=== PATIENT | male | born 1950 | race Caucasian/White ===

== ENCOUNTER 2021-03-27 13:21 | Outpatient (CLI) | payer MEDICARE, OTHER ==
[~2021-03-27 13:21] MED LIST: ASPI-266 PO; LISI20TA PO; PANT20TA PO; SUCR1TAB23 PO
[2021-03-27] MEDS ORDERED: VIT-31 PO (14:09)
[2021-03-27] MEDS ORDERED: ASPI-999 PO (14:09)
[2021-03-31] MEDS ORDERED: PANT40TA2 PO (13:58)
== END 2021-03-27 14:43 | disposition home or self-care (01) ==
LOC: PREOP 13:21
PROVIDERS: ATTEND Surgery
DX: Z01.818 Encounter for other preprocedural examination (principal)

== ENCOUNTER → 2021-03-30 | Outpatient (CLI) | payer MEDICARE, OTHER ==
[~2021-03-30] MED LIST changes: +ASPI-999 PO; +PANT40TA2 PO; +VIT-31 PO
== END ==
LOC: LAB FS 10:00
PROVIDERS: ATTEND Surgery
DX: Z01.812 Encounter for preprocedural laboratory examination (principal); R10.9 Unspecified abdominal pain; R13.10 Dysphagia, unspecified; R19.4 Change in bowel habit; Z20.822 Contact with and (suspected) exposure to COVID-19
CPT/HCPCS: 87635

== ENCOUNTER 2021-03-31 11:09 | Day surgery (SDC) | payer MEDICARE, OTHER ==
--- NOTE | 2021-03-27 22:51 | HISTORY AND PHYSICAL ---
DATE OF SERVICE: ATTENDING PRIMARY CARE PHYSICIAN: Dr. Antonio Archer. HISTORY OF PRESENT ILLNESS: The patient is a 71-year-old male known to us. He presents with few different issues. He first reports that he has developed epigastric and substernal pressure sensation with specific types of foods usually with rice and turkey. He then states that eventually this would reduce on its own over time; however, he would also frequently have regurgitation. He does not report any hematemesis, no coffee ground emesis. He does have a history of gastroesophageal reflux disease; however, he states that this is not severe. He is currently not on any acid reducers. He also reports a change in bowel habit and states that he has always been regular; however, in the past several months, he has not been as regular and states that his stools have been harder and he feels that he has incomplete evacuation after having a bowel movement. He does not report any red blood per rectum nor any dark tarry stools. He also does not report any recent inadvertent weight loss. He did undergo a colonoscopy in 2013, which showed mild chronic stage II external and internal hemorrhoids as well as a mild sigmoid diverticulosis. No other abnormalities were detected. PAST MEDICAL HISTORY: Hypertension, ocular hypertension. PAST SURGICAL HISTORY: None. ALLERGIES: No known drug allergies. MEDICATIONS: Lisinopril 20 mg daily, aspirin 81 mg daily, Travatan eyedrops daily. SOCIAL HISTORY: Negative smoke, negative alcohol. FAMILY HISTORY: Mother, stroke, age 78, hypertension. Father, lung cancer, age 75. VITAL SIGNS: Blood pressure 140/80, current weight 186.8 pounds at 6 feet 1 inch. REVIEW OF SYSTEMS: This is a well-nourished male, currently in no acute distress. He is not experiencing any shortness of breath or difficulty breathing. No chest pain, palpitations, diaphoresis. He has had epigastric pressure sensation as well as substernal and this tends to follow dry foods and then would reduce on its own or he would regurgitate the food up. No hematemesis, no coffee ground emesis. He also reports change in bowel habits with feelings of incomplete evacuation as well as harder more well-formed stools, which has not been the norm for him. This is despite taking stool softeners as well as some laxatives. No fever, chills, no recent inadvertent weight loss. All other review of systems negative. PHYSICAL EXAMINATION: CHEST: Clear. Good breath sounds bilaterally. HEART: Regular, no murmurs. EXTREMITIES: No lower extremity edema, negative Homans sign. HEENT: No scleral icterus. NECK: No cervical lymphadenopathy. ABDOMEN: Soft, nondistended. There is mild discomfort in the epigastric region upon deep palpation. No peritoneal signs. No hernias. SKIN: Warm, dry. ASSESSMENT AND PLAN: A 71-year-old male with dysphagia, atypical gastroesophageal reflux disease as well as change in bowel habits encompassing harder more well-formed stools and constipation. We will schedule him for an EGD as well as biopsies as appropriate as well as a balloon dilatation if a stricture is identified. We will also proceed with colonoscopy to evaluate any anatomic changes. If none is identified, we will recommend the incorporation of high fiber diet with fiber supplementation, which should equal or exceed 30 mg daily to the point where he does have soft stools on a daily basis with minimal form. Job ID: [id number] DocumentID: [id number] Dictated Date: 03/27/2021 20:48:25 Director Quality Systems Date: 03/27/2021 21:03:51 Dictated By: ARTEMIO MOORE MD
[2021-03-31] VITALS (7 sets, daily range): BP systolic 91–138; BP diastolic 56–86
[~2021-03-31] VITALS: Ht 185 cm; Wt 85.0 kg
[~2021-03-31 11:09] MED LIST changes: -PANT40TA2 PO
[2021-03-31] MEDS ORDERED: LACTATED RINGERS 1,000 ML IV STA (11:19)
[2021-03-31] MEDS ORDERED: LACTATED RINGERS 1,000 ML IV ONE (11:30)
[2021-03-31] MEDS ORDERED: HURRICAINE EXT TUBE (BENZOCAINE) XX PRN (11:30)
[2021-03-31] MEDS ORDERED: LIDOCAINE JELLY 2% 6 ML SYRINGE MM PRN (11:30)
[2021-03-31] MEDS ORDERED: PROPOFOL INJECTION 50 ML IV ONE (13:44)
[2021-03-31] MEDS ORDERED: MIDAZOLAM 2 MG/2 ML (VERSED) VIAL ONE (13:44)
--- NOTE | 2021-03-31 13:56 | Progress Note-Pre Operative ---
Pre-Operative Progress Note H&P Reviewed The H&P was reviewed, patient examined and no changes noted. Date Seen by Provider: Mar 31, 2021 Time Seen by Provider: 13:30 Date H&P Reviewed: Mar 31, 2021 Time H&P Reviewed: 13:30 Pre-Operative Diagnosis: dysphagia, change bowel habits ARTEMIO MOORE MD Mar 31, 2021 13:56
[2021-03-31] MEDS ORDERED: PANT40TA2 PO (13:58)
--- NOTE | 2021-03-31 13:58 | Discharge Inst-Surgical ---
D/C Lap Instructions-KIDO New, Converted, or Re-Newed RX: RX on Chart Follow Up Activity as tolerated High Fiber Diet 25g or more per day Avoid Alcohol, Caffeine, Spicy Ivins and Acid foods. Drink 64 fluid oz or more of fluids per day. Symptoms to Report: Fever over 101 degree F, Nausea/Vomiting If any problems/questions: Contact your physician or go to Emergency Room ARTEMIO MOORE MD Mar 31, 2021 13:58
[2021-03-31] MEDS ORDERED: morphine INJ 10 MG/ML 1ML (SYR OR VIAL) IVP PRN ×2 (14:00)
[2021-03-31] MEDS ORDERED: HYDROcodone/APAP 5 MG/325 MG (LORTAB) TAB PO PRN (14:00)
[2021-03-31] MEDS ORDERED: ACETAMINOPHEN 325 MG TABLET PO PRN (14:00)
[2021-03-31] MEDS ORDERED: ONDANSETRON 4 MG/2 ML (SDV) Z0FRAN IVP PRN (14:00)
--- NOTE | 2021-03-31 14:44 | Anesthesia-General Post-Op ---
MAC Patient Condition Mental Status/LOC: Same as Preop Cardiovascular: Satisfactory Nausea/Vomiting: Absent Respiratory: Satisfactory Pain: Controlled Complications: Absent Post Op Complications Complications None Follow Up Care/Instructions Patient Instructions None needed. Anesthesiology Discharge Order Discharge Order Patient is doing well, no complaints, stable vital signs, no apparent adverse anesthesia problems. No complications reported per nursing. TYRELL PISANO CRNA Mar 31, 2021 14:44
--- NOTE | 2021-03-31 15:55 | Progress Note-Post Operative ---
Post-Operative Progess Note Surgeon (s)/Caddy Packer (s) Surgeon ARTEMIO MOORE MD Caddy Packer: none Pre-Operative Diagnosis dysphagia, change bowel habits Post-Operative Diagnosis reflux esophagitis(stage 2-3), mild distal esophageal stricture, moderate gastritis. mild chronic stage 2 ext and int hemorrhoids, BPH, mild-mod sigmoid diverticulosis. Procedure & Operative Findings Date of Procedure 03/31/21 Procedure Performed/Findings EGD with bx and balloon dilatation. Colonoscopy Anesthesia Type mac Estimated Blood Loss Estimated blood loss (mL): minimal Specimens/Packing Specimens Removed ge jxn, antrum ARTEMIO MOORE MD Mar 31, 2021 15:55
--- NOTE | 2021-03-31 16:26 | OPERATIVE REPORT ---
DATE OF SERVICE: 03/31/2021 ATTENDING PRIMARY CARE PHYSICIAN: Dr. Antonio Archer. PREOPERATIVE DIAGNOSES: Dysphagia, change in bowel habits. POSTOPERATIVE DIAGNOSES: Reflux esophagitis between stage II and III, mild distal esophageal stricture, small hiatal hernia 2 cm in size, moderate gastritis. Mild chronic stage II external and internal hemorrhoids, mild to moderate sigmoid diverticulosis. DISPOSITION: The patient tolerated the procedure well. INDICATIONS: The patient is a 71-year-old male known to us. He presented with different issues. He reported developing epigastric and substernal pressure sensation with specific types of food usually with rice and turkey. He states that this would eventually reduce on its own over time; however, would also have episodes of regurgitation. He does not report any hematemesis, no coffee ground emesis. He does have a history of gastroesophageal reflux disease; however, not severe and does not take any medication for this. He reports a change in bowel habits and states that he has always been regular. However, in the past several months, he has noticed not been as regular and his stools have been harder and also feels the sensation of incomplete evacuation after trying to have a bowel movement. He does not report any red blood per rectum nor any dark tarry stools. DESCRIPTION OF PROCEDURE: The patient was brought to the endoscopy suite, laid in the left lateral decubitus position. After adequate IV pain and sedative medications and monitored anesthesia care, the mouthpiece was applied. The endoscope was then placed in the mouth, visualizing the pharynx and hypopharyngeal region. Vocal cords, epiglottis and vallecula identified and appeared to be normal. The endoscope was then gently intubated at esophageal opening and esophagus insufflated. The endoscope was then advanced to the first, second and third portion of esophagus at the level of the GE junction, reflux esophagitis between stage II and III identified. There was a mild distal esophageal stricture also identified. A biopsy was taken of the GE junction with forceps with visualization of good hemostasis. The endoscope was then advanced in the stomach and endoscope retroflexed, visualizing small hiatal hernia approximately 2 cm in size. There was moderate gastritis more towards the stomach antrum. No formal ulcerations, polyps, or any neoplasms identified. A biopsy was taken of the antrum to rule out H. pylori with visualization of good hemostasis. The endoscope was then advanced through the pylorus and the first and second portion of the duodenum, which appeared normal. The balloon dilator was then placed in the stomach and pulled back to the area of the stricture. We then proceeded with 2 atmospheres of pressure with mild resistance. We then went to 4 atmospheres of pressure or 19 mm in luminal diameter. We then slowly proceeded to 4 atmospheres of pressure with moderate resistance and this was 19 mm in luminal diameter and left this in place for approximately 60 seconds. The balloon was then desufflated and removed with visualization of good hemostasis as well as no mucosal tears. The endoscope was then slowly withdrawn while taking a second look and suctioning of residual air with no additional findings. A digital rectal examination was performed, which revealed mild chronic stage II external and internal hemorrhoids, not actively edematous nor inflamed and no bleeding. Normal sphincter tone was felt and there were no palpable masses. Prostate gland was palpable and slightly hypertrophic. However, there were no discrete nodules identified. The endoscope was then intubated into the anus and rectum gently insufflated. The endoscope was then advanced to the valves of Tellez of the rectum with no polyps or any neoplasms identified. Through the sigmoid colon, a mild to moderate sigmoid diverticulosis identified. There were no mucosal inflammatory changes to indicate any active diverticulitis. The endoscope was then advanced through the remainder of the descending, transverse and ascending colon to the cecum. These segments were normal. There were no polyps or any neoplasms identified. The endoscope was then slowly withdrawn while taking a second look and suctioning of residual air with no additional findings. The patient tolerated the procedure well. We will recommend the necessary lifestyle and diet accommodation including small and more frequent meals, avoidance of eating at night as well as head elevation while lying supine. He also needs to avoid caffeinated beverages, spicy, greasy and acidic foods and we will also start him on Protonix 40 mg daily. We will also recommend incorporation of a high-fiber diet with a fiber supplement, which should equal or exceed 30 grams daily as well as significant amounts of water till he reach the point of having a soft bowel movement with minimal form on a daily basis. Job ID: [id number] DocumentID: [id number] Dictated Date: 03/31/2021 14:40:42 Mainframe Software Developer Date: 03/31/2021 16:26:13 Dictated By: ARTEMIO MOORE MD
== END 2021-03-31 15:27 | disposition home or self-care (01) ==
LOC: ENDO 11:09
PROVIDERS: ATTEND Surgery
DX: K21.00 Gastro-esophageal reflux disease with esophagitis, without bleeding (principal); K22.2 Esophageal obstruction; K44.9 Diaphragmatic hernia without obstruction or gangrene; K29.70 Gastritis, unspecified, without bleeding; K64.1 Second degree hemorrhoids; K57.30 Diverticulosis of large intestine without perforation or abscess without bleeding; K59.00 Constipation, unspecified; I10 Essential (primary) hypertension; H40.059 Ocular hypertension, unspecified eye; Z79.82 Long term (current) use of aspirin; Z79.899 Other long term (current) drug therapy; Z98.890 Other specified postprocedural states

== ENCOUNTER 2021-10-30 13:23 | Emergency (ER) | payer MEDICARE, OTHER ==
[~2021-10-30] VITALS: Ht 185.5 cm; Wt 89.8 kg
[~2021-10-30 13:23] MED LIST changes: +PANT40TA2 PO
[2021-10-30 13:50] LABS: PROTHROMBIN TIME PATIENT 13.3 SEC (12.2-14.7)
--- NOTE | 2021-10-30 13:50 | ED Chest Pain ---
General Chief Complaint: Chest Pain Stated Complaint: CHEST PAIN Nursing Triage Note: Patient reports he tested positive for COVID-19 on October 15, states he has been released from quarantine and has been feeling well. He reports sudden onset of chest pain/tightness today just prior to coming to the ER. He reports the pain has now resolved, states he took 2 (81mg) aspirin before coming to the ED. He reports he has just finished taking a z-pack and course of dexamethasone. Source: patient History of Present Illness Date Seen by Provider: Oct 30, 2021 Time Seen by Provider: 13:37 Initial Comments 71-year-old male presenting with complaints of tightness to his upper back between his shoulders. He states that this seemed to improve as he was walking and moving around. He had some mild shortness of breath along with it. He did take 281 mg aspirin prior to coming to the ED. He had COVID on October 15 and was just released from quarantine. He had a chest x-ray done last week that did not show any acute changes. He feels like his lungs are very dry and he cannot get anything up when he coughs. He does have a history of hypertension but does not have any heart history. He denies having any nausea or vomiting. He is not having any dizziness, lightheadedness, anterior chest pain, abdominal pain, headache, radiation to his arms. He does feel like his muscles have been tight in the upper back between his shoulder blades. His symptoms lasted for a few minutes and then resolved. 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) NTG SL PASSENGER LOCOMOTIVE ENGINEER: No Associated Symptoms: No abdominal pain, No diaphoresis, No dizziness, No edema, No fatigue, No fever/chills, No headache, No heartburn, No nausea/vomiting, No rash; shortness of breath (mild chronic since Covid 2 weeks ago); No swelling/lump in chest, No syncope, No weakness Allergies and Home Medications Allergies Coded Allergies: No Known Drug Allergies (Unverified , 08/07/14) Patient Home Medication List Home Medication List Reviewed: Yes Aspirin (Aspirin) 81 Mg Tab.chew, 81 MG PO DAILY, (Reported) Entered as Reported by: HIWOT FRANCO on 03/27/21 1409 Lisinopril (Prinivil) 20 Mg Tablet, 20 MG PO DAILY, (Reported) Entered as Reported by: STIVEN HALEY on 08/07/14 0858 Pantoprazole Sodium (Protonix) 40 Mg Tablet.dr, 40 MG PO DAILY Prescribed by: ARTEMIO MOORE on 03/31/21 1358 Vit A/Vit C/Vit E/Zinc/Copper (Eye Multivitamin Tablet) 1 Each Tablet, 1 EACH PO DAILY, (Reported) Entered as Reported by: HIWOT FRANCO on 03/27/21 1409 Review of Systems Review of Systems Constitutional: No chills, No diaphoresis, No fever EENTM: No Symptoms Reported Respiratory: See HPI Cardiovascular: See HPI Gastrointestinal: See HPI Genitourinary: Denies Burning, Denies Drainage Musculoskeletal: see HPI Skin: No rash Psychiatric/Neurological: Denies Headache Hematologic/Lymphatic: Denies Blood Clots Past Llrhmkg-Rhttgm-Lmtoav Hx Patient Social History Tobacco Use?: No Substance use?: No Alcohol Use?: No Pt feels they are or have been: No Immunizations Up To Date First/Initial COVID19 Vaccinat: Nov 2020 Second COVID19 Vaccination Charles: December 2020 COVID19 Vaccine Warning Analyst: Yury Seasonal Allergies Seasonal Allergies: No Past Medical History Surgery/Hospitalization HX: HTN, ocular HTN, GERD, Covid Oct 2021 Surgeries: No Respiratory: No Cardiac: No Neurological: No Genitourinary: No Gastrointestinal: No Musculoskeletal: Yes (ARTHRITIS) Endocrine: No HEENT: No Cancer: No Psychosocial: No Integumentary: No Blood Disorders: No Physical Exam Vital Signs Vital Signs - First Documented 10/30/21 13:30 Temp 36.4 Pulse 75 Resp 13 B/P (MAP) 130/99 (109) Pulse Ox 99 O2 Delivery Room Air Capillary Refill : Less Than 3 Seconds Height, Weight, BMI Height: 6'1.00" Weight: 190lbs. oz. 86.239485hh; 26.00 BMI Method: General Appearance: No Apparent Distress, WD/WN HEENT: PERRL/EOMI, Pharynx Normal Neck: Full Range of Motion, Normal Inspection, Non Tender, Supple Respiratory: Lungs Clear, Normal Breath Sounds, No Accessory Muscle Use, No Respiratory Distress, Other (tightness to muscles of upper back between shoulder blades) Cardiovascular: Regular Rate, Rhythm, No Murmur, Normal Peripheral Pulses Gastrointestinal: Normal Bowel Sounds, No Pulsatile Mass, Non Tender, Soft Rectal: Deferred Extremity: Normal Capillary Refill, Normal Inspection, No Calf Tenderness, No Pedal Edema Neurologic/Psychiatric: Alert, Oriented x3, No Motor/Sensory Deficits, Normal Mood/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, 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 Norm as Tested Skin: Normal Color, Warm/Dry Progress/Results/Core Measures Results/Orders Lab Results Laboratory Tests Test 10/30/21 13:32 10/30/21 15:25 Range/Units White Blood Count 11.7 H 4.3-11.0 10^3/uL Red Blood Count 4.77 4.30-5.52 10^6/uL Hemoglobin 13.9 13.3-17.7 g/dL Hematocrit 40 40-54 % Mean Corpuscular Volume 85 80-99 fL Mean Corpuscular Hemoglobin 29 25-34 pg Mean Corpuscular Hemoglobin Concent 34 32-36 g/dL Red Cell Distribution Width 11.4 10.0-14.5 % Platelet Count 565 H 130-400 10^3/uL Mean Platelet Volume 8.4 L 9.0-12.2 fL Immature Granulocyte % (Auto) 2 % Neutrophils (%) (Auto) 64 42-75 % Lymphocytes (%) (Auto) 25 12-44 % Monocytes (%) (Auto) 7 0-12 % Eosinophils (%) (Auto) 1 0-10 % Basophils (%) (Auto) 1 0-10 % Neutrophils # (Auto) 7.5 1.8-7.8 X 10^3 Lymphocytes # (Auto) 3.0 1.0-4.0 X 10^3 Monocytes # (Auto) 0.9 0.0-1.0 X 10^3 Eosinophils # (Auto) 0.2 0.0-0.3 10^3/uL Basophils # (Auto) 0.1 0.0-0.1 10^3/uL Immature Granulocyte # (Auto) 0.2 H 0.0-0.1 10^3/uL Prothrombin Time 13.3 12.2-14.7 SEC INR Comment 1.0 0.8-1.4 Activated Partial Thromboplast Time 25 24-35 SEC D-Dimer 0.90 H 0.00-0.49 UG/ML Sodium Level 137 135-145 MMOL/L Potassium Level 4.6 3.6-5.0 MMOL/L Chloride Level 102 98-107 MMOL/L Carbon Dioxide Level 26 21-32 MMOL/L Anion Gap 9 5-14 MMOL/L Blood Urea Nitrogen 17 7-18 MG/DL Creatinine 1.18 0.60-1.30 MG/DL Estimat Glomerular Filtration Rate 67 BUN/Creatinine Ratio 14 Glucose Level 103 70-105 MG/DL Calcium Level 9.2 8.5-10.1 MG/DL Corrected Calcium 9.0 8.5-10.1 MG/DL Magnesium Level 1.9 1.6-2.4 MG/DL Total Bilirubin 0.2 0.1-1.0 MG/DL Aspartate Amino Transf (AST/SGOT) 11 5-34 U/L Alanine Aminotransferase (ALT/SGPT) 17 0-55 U/L Alkaline Phosphatase 74 40-136 U/L Myoglobin 41.8 10.0-92.0 NG/ML Troponin I < 0.30 < 0.30 <0.30 NG/ML Pro-B-Type Natriuretic Peptide 71.1 <75.0 PG/ML Total Protein 7.0 6.4-8.2 GM/DL Albumin 4.2 3.2-4.5 GM/DL My Orders Orders - RAD DONALDSON MD Cbc With Automated Diff (10/30/21 13:39) Magnesium (10/30/21 13:39) Chest 1 View Ap/Pa Only (10/30/21 13:39) Ekg Tracing (10/30/21 13:39) Comprehensive Metabolic Panel (10/30/21 13:39) Myoglobin Serum (10/30/21 13:39) Protime With Inr (10/30/21 13:39) Partial Thromboplastin Time (10/30/21 13:39) Monitor-Rhythm Ecg Trace Only (10/30/21 13:39) Ed Iv/Invasive Line Start (10/30/21 13:39) Troponin I Fs (10/30/21 13:39) Probnp Fs (10/30/21 13:48) Fibrin Degradation Products (10/30/21 14:16) Ketorolac Injection (Toradol Injection) (10/30/21 14:17) Orphenadrine Inj (Ed Only) (Norflex Inje (10/30/21 14:17) Ct Angio Chest W (10/30/21 14:54) Troponin I Fs (10/30/21 14:54) Iohexol Injection (Omnipaque 350 Mg/Ml 1 (10/30/21 15:00) Received Contrast (Hold Metformin- Contr (10/30/21 15:00) Sodium Chloride Flush (Catheter Flush Sy (10/30/21 15:00) Ns (Ivpb) (Sodium Chloride 0.9% Ivpb Bag (10/30/21 15:00) Medications Given in ED Current Medications Medications Dose Ordered Sig/Christos Route Start Time Stop Time Status Last Admin Dose Admin Iohexol 100 ml ONCE ONCE IV 10/30/21 15:00 10/30/21 15:01 DC 10/30/21 15:19 100 ML Sodium Chloride 10 ml NEEDED PRN IV 10/30/21 15:00 10/30/21 16:11 DC 10/30/21 15:19 10 ML Sodium Chloride 100 ml ONCE ONCE IV 10/30/21 15:00 10/30/21 15:01 DC 10/30/21 15:19 100 ML Vital Signs/I&O 10/30/21 10/30/21 13:30 16:10 Temp 36.4 Pulse 75 71 Resp 13 18 B/P (MAP) 130/99 (109) 131/69 Pulse Ox 99 97 O2 Delivery Room Air Room Air Blood Pressure Mean: 109 Progress Progress Note #1: Progress Note Check basic labs as well as electrocardiogram and chest x-ray. We will try a dose of muscle relaxer and low-dose anti-inflammatory to see if that helps with his symptoms while waiting on blood work. His initial electrocardiogram does not show any acute coronary syndrome or ST elevation AR. Progress Note #2: Progress Note Initial labs all look stable without acute significant abnormality. His chest x-ray shows some COPD type changes with no acute infiltrate or effusion. His initial troponin is negative. He does have a mild elevation of his D-dimer up to 0.9. Will repeat the troponin to make sure that it is not increasing. Also will add on a CT angiogram of the chest considering he has an elevated D-dimer. This is likely just due to his recent COVID infection but if there are signs of a PE then the CT angiogram would help pick that up Progress Note #3: Progress Note CT angiogram is negative for PE and no acute abnormality of heart or lungs on imaging either. Repeat troponin still pending. Progress Note #4: Progress Note Repeat Troponin still <0.3 and he has had no further symptoms. Will discharge to home and reviewed return precautions and encouraged to follow up with pcp for continued problems. May be more musculoskeletal or continued healing post-covid infection. Initial ECG Impression Date: Oct 30, 2021 Initial ECG Impression Time: 13:25 Initial ECG Rate: 75 Initial ECG Rhythm: Normal Sinus Initial ECG Comparisson: No Previous ECG Available Comment Normal sinus rhythm with a heart rate of 75 bpm. NE interval [address] elevation. QT interval 386 ms with a QTc interval 420 ms. No prior tracing available for comparison Diagnostic Imaging Diagonstic Imaging: Xray Plain Films/CT/US/NM/MRI: chest Comments NAME: Kin RAI II MED REC#: [id number] PT STATUS: REG ER : 1950 PHYSICIAN: RAD DONALDSON MD ADMIT DATE: 10/30/21/ER FS Draft Date of Exam:10/30/21 CHEST 1 VIEW AP/PA ONLY INDICATION: Chest pain and tightness EXAMINATION: Chest 10/30/2021 FINDINGS: Single view chest. Lungs appear hyperinflated but clear. There are no infiltrates, effusions or pneumothorax. The heart and pulmonary vasculature is normal. Osseous structures intact. IMPRESSION: 1. Emphysematous changes with otherwise negative chest. Dictated on workstation # [id number] Dict: 10/30/21 1347 Trans: 10/30/[address] [facility] [id number] Interpreted by: ZEESHAN MADISON MD Electronically signed by: Reviewed: Reviewed by Me Diagonstic Imaging: CT Plain Films/CT/US/NM/MRI: chest Comments NAME: Kin RAI II MED REC#: [id number] PT STATUS: REG ER : 1950 PHYSICIAN: RAD DONALDSON MD ADMIT DATE: 10/30/21/ER FS Draft Date of Exam:10/30/21 CT ANGIO CHEST W PROCEDURE: CT angiography of the chest with contrast. TECHNIQUE: Multiple contiguous axial images were obtained through the chest after uneventful bolus administration of intravenous contrast. 3D reconstructed CTA MIP acquisitions were also performed. Auto Exposure Controls were utilized during the CT exam to meet ALARA standards for radiation dose reduction. INDICATION: Chest pain and tightness across the shoulder blades. Patient also has elevated D-dimer. COMPARISON: No prior studies are available for comparison. FINDINGS: There is suboptimal opacification of the pulmonary arterial system. This does limit evaluation of the more peripheral pulmonary arteries. No central pulmonary emboli are detected. Thoracic aorta is normal in caliber. There is no dissection. There is no pericardial or pleural fluid identified. No pulmonary infiltrates, nodules or masses are detected. Upper abdomen is unremarkable. IMPRESSION: Suboptimal opacification of the pulmonary arterial system. No definite central pulmonary emboli are detected. There is no evidence of acute aortic disease. Dictated on workstation # [id number] Dict: 10/30/21 1524 Trans: 10/30/21 1531 [id number] Interpreted by: KAREEN SHANKS MD Electronically signed by: Reviewed: Reviewed by Me Departure Impression Primary Impression: Feeling of chest tightness Additional Impression: Atypical chest pain Disposition: HOME, SELF-CARE Condition: Stable Departure-Patient Inst. Decision time for Depature: 16:08 Referrals: EUGENIE PRUITT DO (PCP) Primary Care Physician Patient Instructions: Chest Pain, Adult ED, Recovery After COVID-19 Add. Discharge Instructions: Your tests do not show any signs of heart attack, pneumonia, or blood clots. The Chest tightness may be related to inflammation from recent Covid infection If you have continued symptoms then check back with Dr. Pruitt. You could try alternating ice and heat to help with chest wall and muscle pain to your upper back. All discharge instructions reviewed with patient and/or family. Voiced understanding. RAD DONALDSON MD Oct 30, 2021 13:50
[2021-10-30 13:52] LABS: HEMATOCRIT 40 % (40-54); HEMOGLOBIN 13.9 g/dL (13.3-17.7); MEAN CORPUSCULAR HEMOGLOBIN 29 pg (25-34); MEAN CORPUSCULAR HGB CONC 34 g/dL (32-36); MEAN CORPUSCULAR VOLUME 85 fL (80-99); MEAN PLATELET VOLUME 8.4 fL (9.0-12.2); NEUTROPHILS % (AUTO) 64 % (42-75); PLATELET COUNT 565 10^3/uL (130-400); WHITE BLOOD COUNT 11.7 10^3/uL (4.3-11.0)
[2021-10-30 13:53] LABS: BASOPHILS # (AUTO) 0.1 10^3/uL (0.0-0.1); BASOPHILS % (AUTO) 1 % (0-10); EOSINOPHILS # (AUTO) 0.2 10^3/uL (0.0-0.3); EOSINOPHILS % (AUTO) 1 % (0-10); LYMPHOCYTES % (AUTO) 25 % (12-44); MONOCYTES # (AUTO) 0.9 X 10^3 (0.0-1.0); MONOCYTES % (AUTO) 7 % (0-12); NEUTROPHILS # (AUTO) 7.5 X 10^3 (1.8-7.8)
[2021-10-30] MEDS ORDERED: ORPHENADRINE 60 MG/2 ML (NORFLEX) AMP (ED ONLY) IVP STA (14:17)
[2021-10-30] MEDS ORDERED: KETOROLAC 30 MG/ML VIAL IVP STA (14:17)
[2021-10-30 14:28] LABS: BILIRUBIN,TOTAL 0.2 MG/DL (0.1-1.0); CALCIUM 9.2 MG/DL (8.5-10.1); CREATININE SERUM 1.18 MG/DL (0.60-1.30); MAGNESIUM 1.9 MG/DL (1.6-2.4); POTASSIUM 4.6 MMOL/L (3.6-5.0)
[2021-10-30 14:29] LABS: ALBUMIN 4.2 GM/DL (3.2-4.5)
[2021-10-30] MEDS ORDERED: CATHETER FLUSH 10 ML SYR IV PRN (15:00)
[2021-10-30] MEDS ORDERED: IOHEXOL 350 MG/ML 100 ML (OMNIPAQUE 350) VIAL IV ONE (15:00)
[2021-10-30] MEDS ORDERED: HOLD METFORMIN - RECEIVED CONTRAST 20 ML VIAL IV SCH (15:00)
[2021-10-30] MEDS ORDERED: NS 100 ML (IVPB) BAG IV ONE (15:00)
--- NOTE | 2021-10-30 15:31 | Diagnostic Imaging Report ---
PROCEDURE: CT angiography of the chest with contrast. TECHNIQUE: Multiple contiguous axial images were obtained through the chest after uneventful bolus administration of intravenous contrast. 3D reconstructed CTA MIP acquisitions were also performed. Auto Exposure Controls were utilized during the CT exam to meet ALARA standards for radiation dose reduction. INDICATION: Chest pain and tightness across the shoulder blades. Patient also has elevated D-dimer. COMPARISON: No prior studies are available for comparison. FINDINGS: There is suboptimal opacification of the pulmonary arterial system. This does limit evaluation of the more peripheral pulmonary arteries. No central pulmonary emboli are detected. Thoracic aorta is normal in caliber. There is no dissection. There is no pericardial or pleural fluid identified. No pulmonary infiltrates, nodules or masses are detected. Upper abdomen is unremarkable. IMPRESSION: Suboptimal opacification of the pulmonary arterial system. No definite central pulmonary emboli are detected. There is no evidence of acute aortic disease. Dictated by: Dictated on workstation # [id number]
[2021-10-30 16:10] VITALS: BP 131/69
== END 2021-10-30 16:11 | disposition home or self-care (01) ==
LOC: EDUNIT# 13:27 → ER FS 13:28
DX: R07.89 Other chest pain (principal); I10 Essential (primary) hypertension; K21.9 Gastro-esophageal reflux disease without esophagitis; Z79.82 Long term (current) use of aspirin; Z79.899 Other long term (current) drug therapy
CPT/HCPCS: 36415; 71045; 71275; 80053; 83735; 83874; 83880; 84484; 85025; 85379; 85610; 85730; 93005; 93041; 96374